=== PATIENT | female | born 1945 | race Caucasian/White ===

== ENCOUNTER 2016-04-18 10:23 | Outpatient (CLI) | payer MEDICARE, OTHER | END 2016-04-18 10:24 | disposition home or self-care (01) | DX: N94.818 Other vulvodynia (principal) ==

== ENCOUNTER 2016-07-01 16:42 | Emergency (ER) | payer MEDICARE, OTHER ==
[2016-07-01 16:49] VITALS: BP 129/86
[2016-07-01] MEDS ORDERED: BENZONATATE 100 MG CAPSULE PO STA (16:53)
[2016-07-01] MEDS ORDERED: guaiFENesin/DEXTROMETHORPHAN 10 ML UDC PO STA (16:53)
--- NOTE | 2016-07-01 16:57 | ED Physician Documentation ---
History of Present Illness - Stated complaint Stated Complaint: COUGH - Chief complaint Chief Complaint: General - Additonal information Additional information: hx from pt 70 y/o female to ER with productive cough X 1 week no fever no sick contacts no recent travel chronic bronchitis since returned from [place] 5-10 yr ago hx breast cancer not active now R ankle always a bit swollen after fx long ago but no change Review of Systems Constitutional: denies: Fever, Chills Respiratory: reports: Cough Musculoskeletal: denies: Extremity swelling (none new) Endocrine: denies: Easy bruising / bleeding Immunocompromised: denies: Immunocompromised PD PAST MEDICAL HISTORY - Past Medical History Past Medical History: Yes Cardiovascular: Hypertension, High cholesterol Respiratory: Sleep apnea Endocrine/Autoimmune: None GI: None : Frequency HEENT: Chronic vision loss, Other Psych: Depression Musculoskeletal: Osteoarthritis Derm: None - Past Surgical History Past Surgical History: Yes General: Colonoscopy 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 HEENT: Cataracts - Present Medications Home Medications: Ambulatory Orders Medication Instructions Recorded Confirmed Anastrozole [Anastrozole] 1 mg PO DAILY 06/17/14 01/27/16 Aspirin [Aspir 81] 81 mg PO DAILY 06/17/14 01/27/16 hydroCHLOROthiazide [Hydrodiuril] 25 mg PO DAILY 06/17/14 01/27/16 Simvastatin [Zocor] 1 tab PO DAILY 07/28/15 01/27/16 Calcium Carbonate/Vitamin D3 1 each PO DAILY 09/23/15 01/27/16 [Calcium 600 + Vit D 400 Tablet] Multivitamin [Multivitamins] 1 each PO DAILY 09/23/15 01/27/16 Sertraline [Zoloft] 75 mg PO DAILY 01/26/16 01/27/16 Benzonatate [Tessalon] 100 mg PO TID PRN #20 capsule 07/01/16 guaiFENesin/DEXTROMETHORPHAN 10 ml PO Q6H PRN #120 ml 07/01/16 [Robitussin Dm] - Allergies Allergies/Adverse Reactions: Allergies Allergy/AdvReac Type Severity Reaction Status Date / Time adhesive tape AdvReac Rash Verified 07/01/16 16:48 niacinamide AdvReac Itching Verified 07/01/16 16:48 - Social History Does the pt smoke?: No Smoking Status: Never smoker PD ED PE NORMAL - Vitals Vital signs reviewed: Yes - General General: Other (harsh wet cough) - Cardiac Cardiac: RRR - Respiratory Respiratory: No respiratory distress, Clear bilaterally - Abdomen Abdomen: Soft, Non tender - Derm Derm: Normal color - Extremities Extremities: No deformity, Normal ROM s pain, Other (mild symm edema right slightly more so but baseline per pt) Results - Vitals Vitals: Vital Signs - 24 hr 07/01/16 16:46 Temperature 36.7 C Heart Rate 86 Respiratory 16 Rate Blood Pressure 129/86 H O2 Saturation 100 Oxygen O2 Source Room air - Rads (name of study) chest xray Radiology: See rad report (no acute) PD MEDICAL DECISION MAKING - ED course ED course: pt advised to fup PMD about her blood pressure Departure - Departure Disposition: Home, Self Care Clinical Impression: Acute bronchitis Qualifiers: Bronchitis organism: unspecified organism Qualified Code(s): J20.9 - Acute bronchitis, unspecified Condition: Good Instructions: ED URI Viral Follow-Up: Tamar Medina DO [Primary Care Provider] - Prescriptions: guaiFENesin/DEXTROMETHORPHAN [Robitussin Dm] 10 ml PO Q6H PRN #120 ml PRN Reason: Cough Benzonatate [Tessalon] 100 mg PO TID PRN #20 capsule PRN Reason: to ease cough Comments: The xray was fine - no pneumonia or fluid in your lungs Most likely you have a viral infection. This does not make you any less ill but means antibiotics will not help I have prescribed some medications to ease your cough Some viral infections can take weeks to resolve Follow up with your PMD as needed Return sooner if worse
[2016-07-01] MEDS ORDERED: guaiFENesin/DEXTROMETHORPHAN 10 ML UDC ONE (17:04)
[2016-07-01] MEDS ORDERED: BENZONATATE 100 MG CAPSULE PO ONE (17:04)
--- NOTE | 2016-07-01 17:53 | XRAY Preliminary Report ---
Exam: XR Chest 2 View PA/LAT IMPRESSION: Normal 2-view chest radiography. [facility]
--- NOTE | 2016-07-01 18:20 | XRAY Report ---
EXAM: CHEST RADIOGRAPHY EXAM DATE: 07/01/2016 05:18 PM. CLINICAL HISTORY: Cough. COMPARISON: 05/26/2015. TECHNIQUE: 2 views. FINDINGS: Lungs/Pleura: No focal opacities evident. No pleural effusion. No pneumothorax. Normal volumes. Mediastinum: Heart and mediastinal contours are unremarkable. Other: None. IMPRESSION: Normal 2-view chest radiography. [facility] Referring Provider Line: [phone]
== END 2016-07-01 18:35 | disposition home or self-care (01) ==
LOC: ED 16:42
DX: J20.9 Acute bronchitis, unspecified (principal); I10 Essential (primary) hypertension; E78.00 Pure hypercholesterolemia, unspecified; G47.30 Sleep apnea, unspecified; M19.90 Unspecified osteoarthritis, unspecified site; Z79.82 Long term (current) use of aspirin
CPT/HCPCS: 71020; 99283; A9270

== ENCOUNTER 2016-07-06 21:04 | Emergency (ER) | payer MEDICARE, OTHER ==
--- NOTE | 2016-07-06 21:52 | ED Physician Documentation ---
PD HPI Fall - Stated complaint Stated Complaint: FACE/RIBS BRUISED FROM FALL - Chief complaint Chief Complaint: Trauma Hd/Nk - History obtained from History obtained from: Patient - History of Present Illness Mechanism of injury: Slipped (on grass and fell forward, striking left side, mainly chest, but also some cheek of face. Scraped palm but no bony tenderness. No LOC nor concussive symptoms. Does not take blood thinners.) Fall distance: Standing position Timing - onset: Today Injury(ies) location: Face, Chest, Left Uppper Extremity Quality of pain: Aching, Sharp (left chest mainly, hurting with breathing and moving) Associated symptoms: Other (no visual change). No: LOC, AMS, Nausea / vomiting Worsens with: Movement, Palpation, Other (breathing) Contributing factors: No: Anticoagulated, Intoxicated Similar symptoms before: Has not had sx before Recently seen: Not recently seen Review of Systems Constitutional: denies: Fever, Chills Nose: denies: Rhinorrhea / runny nose, Congestion Throat: denies: Sore throat Cardiac: reports: Chest pain / pressure. 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 HEENT: Cataracts - Present Medications Home Medications: Ambulatory Orders Medication Instructions Recorded Confirmed Anastrozole [Anastrozole] 1 mg PO DAILY 06/17/14 01/27/16 Aspirin [Aspir 81] 81 mg PO DAILY 06/17/14 01/27/16 hydroCHLOROthiazide [Hydrodiuril] 25 mg PO DAILY 06/17/14 01/27/16 Simvastatin [Zocor] 1 tab PO DAILY 07/28/15 01/27/16 Calcium Carbonate/Vitamin D3 1 each PO DAILY 09/23/15 01/27/16 [Calcium 600 + Vit D 400 Tablet] Multivitamin [Multivitamins] 1 each PO DAILY 09/23/15 01/27/16 Sertraline [Zoloft] 75 mg PO DAILY 01/26/16 01/27/16 Benzonatate [Tessalon] 100 mg PO TID PRN #20 capsule 07/01/16 guaiFENesin/DEXTROMETHORPHAN 10 ml PO Q6H PRN #120 ml 07/01/16 [Robitussin Dm] Dexamethasone [Decadron] 4 mg PO DAILY #5 tablet 07/07/16 Hydrocodone/Acetaminophen [[place] 1 each PO Q6H PRN #20 tablet 07/07/16 5-325 Tablet] Naproxen [Naprosyn] 500 mg PO BID PRN #20 tablet 07/07/16 - Allergies Allergies/Adverse Reactions: Allergies Allergy/AdvReac Type Severity Reaction Status Date / Time adhesive tape AdvReac Rash Verified 07/06/16 21:10 niacinamide AdvReac Itching Verified 07/06/16 21:10 - Social History Does the pt smoke?: No Smoking Status: Never smoker Does the pt drink ETOH?: No Does the pt have substance abuse?: No - Immunizations Immunizations are current?: Yes - POLST Patient has POLST: No PD ED PE NORMAL - Vitals Vital signs reviewed: Yes - General General: Alert and oriented X 3, Well developed/nourished, Other (hurting with breathing left anterolateral chest around breast and deeper. ) - HEENT HEENT: Other (some bruising left cheek without bony tenderness. ) - Neck Neck: Supple, no meningeal sign, No bony TTP, No adenopathy - Cardiac Cardiac: RRR, No murmur - Respiratory Respiratory: Clear bilaterally, Other (tender left chest anterolateral at level of breast. No abdominal nor lower rib tenderness. ) - Abdomen Abdomen: Soft, Non tender - Derm Derm: Normal color, Warm and dry - Extremities Extremities: No tenderness to palpate, Normal ROM s pain, Other (palm with mild abrasion. 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, No motor deficit, No sensory deficit, Normal speech - Psych Psych: Normal mood, Normal affect Results - Vitals Vitals: Vital Signs - 24 hr 07/06/16 07/06/16 21:08 23:51 Temperature 35.9 C L 36.8 C Heart Rate 76 69 Respiratory 16 16 Rate Blood Pressure 166/91 H 157/77 H O2 Saturation 100 96 Oxygen O2 Source Room air - Rads (name of study) chest CT Radiology: Prelim report reviewed (no fractures nor organ injury) PD MEDICAL DECISION MAKING - ED course Complexity details: reviewed results (no fractures nor organ injury), considered differential (concrn for rib fractures/lung injury, and plain film lower accuracy in that aspect of the ribs, so opted for chest CT.), d/w patient Departure - Departure Disposition: 01 Home, Self Care Clinical Impression: Fall from slip, trip, or stumble Qualifiers: Encounter type: initial encounter Qualified Code(s): W01.0XXA - Fall on same level from slipping, tripping and stumbling without subsequent striking against object, initial encounter Facial contusion Qualifiers: Encounter type: initial encounter Qualified Code(s): S00.83XA - Contusion of other part of head, initial encounter Chest wall contusion Qualifiers: Encounter type: initial encounter Laterality: left Qualified Code(s): S20.212A - Contusion of left front wall of thorax, initial encounter Condition: Stable Record reviewed to determine appropriate education?: Yes Instructions: ED Contusion Chest Wall Follow-Up: Tamar Medina, [Primary Care Provider] - Prescriptions: Dexamethasone [Decadron] 4 mg PO DAILY #5 tablet Naproxen [Naprosyn] 500 mg PO BID PRN #20 tablet PRN Reason: Pain Hydrocodone/Acetaminophen [[place] 5-325 Tablet] 1 each PO Q6H PRN #20 tablet PRN Reason: Pain Print Language: [place]ian Comments: Naproxen or Ibuprofen twice daily for 7-10 days. Add Tylenol or Hydrocodone as needed for pains. There are not any broken ribs nor lung injury seen on the scan , so presume the pains of the injury will be days to a week to improve. Activity as able. Use the Albuterol inhaler 2 puffs 4 times daily for 7-10 days to try to reduce coughing and improve breathing. Decadron daily for 5 more days to reduce bronchiole irritation and thus cough less too. Discharge Date/Time: 07/07/16 00:37
[2016-07-06] MEDS ORDERED: KETOROLAC 30 MG/ML VIAL IM STA (22:11)
[2016-07-06] MEDS ORDERED: DEXAMETHASONE 10 MG/ML VIAL PO STA (22:11)
[2016-07-06] MEDS ORDERED: HYDROcod/ACETAM 5/325 MG TABLET PO STA (22:11)
[2016-07-06] MEDS ORDERED: ALBUTEROL 8 GM INHALER INH STA (22:11)
[2016-07-06] MEDS ORDERED: HYDROcod/ACET 5/325 Prepack 6 PO ONE ×3 (22:13→22:24)
[2016-07-06] MEDS ORDERED: ALBUTEROL 18 GM INHALER INH ONE (22:17)
[2016-07-06] MEDS ORDERED: KETOROLAC 30 MG/ML VIAL ONE (22:18)
[2016-07-06] MEDS ORDERED: HYDROcod/ACETAM 5/325 MG TABLET ONE (22:19)
[2016-07-06] MEDS ORDERED: CHERRY SYRUP 10 ML UDC PO ONE (22:20)
[2016-07-06] MEDS ORDERED: DEXAMETHASONE 10 MG/ML VIAL ONE (22:20)
[2016-07-06 23:52] VITALS: BP 157/77
--- NOTE | 2016-07-06 23:58 | CT Preliminary Report ---
Exam: CT Chest W/O IMPRESSION: No evidence of acute thoracic injury. [facility] SITE ID: [id number]
--- NOTE | 2016-07-07 | CT Report ---
EXAM: CT CHEST EXAM DATE: 07/06/2016 11:23 PM. CLINICAL HISTORY: Fall with left chest pain. COMPARISONS: None. TECHNIQUE: Routine helical CT imaging was performed through the chest. IV contrast: None. Reconstructions: Coron al and sagittal. In accordance with CT protocol optimization, one or more of the following dose reduction techniques w ere utilized for this exam: automated exposure control, adjustment of mA and/or KV based on patient s ize, or use of iterative reconstructive technique. FINDINGS: Lungs/Pleura: No nodules, bronchial thickening, consolidation, or edema. Pulmonary vasculature is nor mal. No pericardial or pleural effusion. No pneumothorax. Mediastinum: Normal. No adenopathy or masses. The heart and great vessels are normal. Bones: Unremarkable. Visualized Abdomen: Unremarkable. Other: None. IMPRESSION: No evidence of acute thoracic injury. [facility] Referring Provider Line: [phone] SITE ID: [id number]
== END 2016-07-07 00:37 | disposition home or self-care (01) ==
LOC: ED 21:04
DX: S20.212A Contusion of left front wall of thorax, initial encounter (principal); S00.83XA Contusion of other part of head, initial encounter; S60.512A Abrasion of left hand, initial encounter; W01.0XXA Fall on same level from slipping, tripping and stumbling without subsequent striking against object, initial encounter; I10 Essential (primary) hypertension; Z79.811 Long term (current) use of aromatase inhibitors; Z79.82 Long term (current) use of aspirin
CPT/HCPCS: 71250; 94640; 96372; 99283; 99284; A9270

== ENCOUNTER 2016-11-09 11:38 | Day surgery (SDC) | payer MEDICARE, OTHER ==
[2016-11-09] MEDS ORDERED: LACTATED RINGERS 1,000 ML IV ONE (11:44)
[2016-11-09] MEDS ORDERED: fentaNYL 100 MCG/2 ML VIAL IVP ONE (13:05)
[2016-11-09] MEDS ORDERED: MIDAZOLAM 2 MG/2 ML VIAL IVP ONE (13:05)
[2016-11-09 14:04] VITALS: BP 134/67
== END 2016-11-09 11:39 | disposition home or self-care (01) ==
LOC: SDS 11:38
PROVIDERS: ATTEND Surgery
PROC: 0DBP8ZX Excision of Rectum, Via Natural or Artificial Opening Endoscopic, Diagnostic (ICD-10-PCS; principal; 2016-11-09 12:45)
DX: Z12.11 Encounter for screening for malignant neoplasm of colon (principal); K62.1 Rectal polyp; E78.00 Pure hypercholesterolemia, unspecified; B20 Human immunodeficiency virus [HIV] disease
CPT/HCPCS: 45380; J7120

== ENCOUNTER 2017-01-30 12:22 | Outpatient (CLI) | payer MEDICARE, OTHER ==
--- NOTE | 2017-02-08 18:50 | Mammography Report ---
DIGITAL DIAGNOSTIC BILATERAL MAMMOGRAM: 01/30/2017 CLINICAL INDICATION: History of right breast cancer, status post lumpectomy and radiation therapy. COMPARISON: 11/2015, 09/2014, 07/2013, 07/2012, 06/2012. TECHNIQUE: Bilateral CC and MLO views, right true lateral view. FINDINGS The breasts again demonstrate heterogeneously dense fibroglandular parenchyma bilaterally. Coarse and punctate, typically benign calcifications are present. Postoperative and post-treatment changes in the right upper outer quadrant are stable. No suspicious masses, clustered microcalcifications, or regions of architectural distortion are identified. IMPRESSION: Benign findings. RECOMMENDATIONS: Routine annual mammography unless otherwise clinically indicated. BIRADS category 2 - Benign findings. STANDARD QUALIFYING STATEMENTS 1. This examination was reviewed with the aid of Computed-Aided Detection (CAD). 2. A negative or benign imaging report should not delay biopsy if clinically suspicious findings are present. Consider surgical consultation if warranted. More than 5% of cancers are not identified by imaging. 3. Dense breasts may obscure an underlying neoplasm. TD: 01/30/2017 18:27 TOI
== END 2017-01-30 12:23 | disposition home or self-care (01) ==
LOC: DI 12:22
PROVIDERS: ATTEND Family Medicine
DX: C50.911 Malignant neoplasm of unspecified site of right female breast (principal)
CPT/HCPCS: 77066

== ENCOUNTER 2017-03-12 08:34 | Outpatient (CLI) | payer MEDICARE, OTHER ==
[2017-03-12 08:56] LABS: BASOPHILS # (AUTO) 0.1 10^3/uL (0.0-0.1); BASOPHILS % (AUTO) 1.8 %; EOSINOPHILS # (AUTO) 0.3 10^3/uL (0.0-0.7); EOSINOPHILS % (AUTO) 5.7 %; HGB - HEMOGLOBIN 14.2 g/dL (12.0-16.0); LYMPHOCYTES # (AUTO) 2.3 10^3/uL (1.5-3.5); LYMPHOCYTES % (AUTO) 40.8 %; MEAN CORPUSCULAR HEMOGLOBIN 28.5 pg (27.0-31.0); MEAN CORPUSCULAR HGB CONC 33.1 g/dL (32.0-36.0); MEAN CORPUSCULAR VOLUME 85.9 fL (81.0-99.0); MEAN PLATELET VOLUME 9.3 fL (7.9-10.8); MONOCYTES # (AUTO) 0.4 10^3/uL (0.0-1.0); MONOCYTES % (AUTO) 6.7 %; NEUTROPHILS # (AUTO) 2.6 10^3/uL (1.5-6.6); PLT - PLATELET COUNT 182 10^3/uL (130-450); RED BLOOD COUNT 4.99 10^6/uL (4.20-5.40); RED CELL DISTRIBUTION WIDTH 13.7 % (12.0-15.0); WHITE BLOOD COUNT 5.7 x10^3/uL (4.8-10.8)
[2017-03-12 09:24] LABS: ALBUMIN/GLOBULIN RATIO 1.2 (1.0-2.2); ALKALINE PHOSPHATASE 83 IU/L (42-121); ALT ALANINE AMINOTRANSFERASE 27 IU/L (10-60); AST ASPARTATE AMINOTRANSFERASE 31 IU/L (10-42); BILIRUBIN,TOTAL 0.3 mg/dL (0.2-1.0); BUN - BLOOD UREA NITROGEN 21 mg/dL (6-20); CALCIUM 9.3 mg/dL (8.5-10.3); CARBON DIOXIDE - CO2 24 mmol/L (21-32); CHLORIDE 98 mmol/L (101-111); CHOL/HDL RATIO 3.4 (<4.4); CHOLESTEROL 197 mg/dL; CREATININE 0.9 mg/dL (0.4-1.0); GFR - MDRD 62 (>89); GLUCOSE 111 mg/dL (70-100); HDL CHOLESTEROL 58 mg/dL; LDL CHOLESTEROL,CALCULATED 103 mg/dL; LDL/HDL RATIO 1.8 (<4.4); SODIUM 136 mmol/L (135-145); TOTAL PROTEIN 7.4 g/dL (6.7-8.2); VLDL CHOLESTEROL 36 mg/dL
== END 2017-03-12 08:35 | disposition home or self-care (01) ==
LOC: LAB 08:34
PROVIDERS: ATTEND Family Medicine
DX: I10 Essential (primary) hypertension (principal); E78.5 Hyperlipidemia, unspecified
CPT/HCPCS: 36415; 80053; 80061; 83721; 85025

== ENCOUNTER 2017-08-02 12:38 | Outpatient (CLI) | payer MEDICARE, OTHER ==
--- NOTE | 2017-08-02 16:55 | DEXA Report ---
Procedure Date: 08/02/2017 Accession Number: [id number] / [id number] Procedure: DEX - Dexa Spine and/or Hip CPT Code: FULL RESULT: EXAM: Dexa Spine and/or Hip DATE: 08/02/2017 1:47 PM CLINICAL HISTORY: POST MENOPAUSAL STATUS TECHNIQUE: Dual energy x-ray absorptiometry (DXA) was performed on a [employer] System. Regions measured are the AP Spine, femoral neck, and if needed forearm. COMPARISON: None. In accordance with the International Society for Clinical Densitometry (ISCD) guidelines, data from previous exams may be reanalyzed using current recommendations and techniques. This is done to allow a more accurate basis for comparison with the current study. FINDINGS: The data for the lumbar spine is as follows: BMD (g/cm/cm) T-SCORE Z-SCORE REGION L1 1.163 0.3 1.1 L2 1.048 -1.3 -0.4 L3 1.193 -0.1 0.8 L4 1.188 -0.1 0.8 TOTAL 1.151 -0.2 0.6 NOTE: All evaluable vertebrae are used for classification The data for the hip is as follows: BMD (g/cm/cm) T-SCORE Z-SCORE REGION Neck 0.910 -0.9 0.3 TOTAL 0.959 -0.4 0.5 NOTE: The femoral neck or total proximal femur, whichever is lowest, is used for classification. IMPRESSION: THE WHO CLASSIFICATION BASED ON THE INTERNATIONAL REFERENCE STANDARD IS NORMAL. THE FRACTURE RISK IS NOT INCREASED. RECOMMENDATION: Patients with diagnosis of osteoporosis or osteopenia should have regular bone mineral density assessment. For those eligible for Medicare, routine testing is allowed once every 2 years. Testing frequency can be increased for patients who have rapidly progressing disease or for those who are receiving medical therapy to restore bone mass. COMMENT: World Health Organization (WHO) definitions for osteoporosis and osteopenia: NORMAL BMD: T-score at -1.0 or higher, fracture risk is low OSTEOPENIA BMD: T-score between -1.0 and -2.5, fracture risk is increased. OSTEOPOROSIS BMD: T-score at -2.5 or lower, fracture risk is high. National Osteoporosis Foundation recommends: 1. Obtain adequate dietary calcium (at least 1200 mg per day) and vitamin D (400-800 international units per day). 2. Participate, as appropriate, in regular weightbearing and muscle-strengthening exercise. 3. Avoid tobacco use and reduce alcohol and caffeine intake. 4. For more detailed information see the website at www.NOF.org.
== END 2017-08-02 12:39 | disposition home or self-care (01) ==
LOC: DI 12:38
PROVIDERS: ATTEND Family Medicine
DX: Z78.0 Asymptomatic menopausal state (principal)
CPT/HCPCS: 77080